=== PATIENT | male | born 1945 | race Caucasian/White ===

== ENCOUNTER → 2020-06-25 17:59 | Outpatient (CLI) | payer MEDICARE ==
[2020-06-25 18:07] LABS: BASOPHILS 0.5 % (0-2); EOSINOPHILS 3.3 % (0-7); HEMATOCRIT 29.1 % (42.0-54.0); HEMOGLOBIN 8.7 g/dL (13.5-17.5); IMMATURE GRANULOCYTES 0.2 % (0-5); LYMPHOCYTES 17.9 % (15-50); MCH 28.7 pg (26.0-34.0); MCHC 29.9 g/dL (31.0-37.0); MEAN PLATELET VOLUME 10.3 fL (7.4-10.4); MONOCYTES 9.2 % (2-11); NEUTROPHILS 68.9 % (40-80); PLATELET COUNT 180 10x3/uL (130-400); RBC 3.03 10x6/uL (4.20-6.10); RDW 17.8 % (11.5-14.5); WBC 5.8 10x3/uL (4.8-10.8)
[2020-06-25 18:22] LABS: ANION GAP 12.4 mmol/L (8-16); CALCIUM 8.6 mg/dL (8.5-10.1); CARBON DIOXIDE 23.5 mmol/L (21.0-32.0); CREATININE - SERUM 1.2 mg/dL (0.6-1.3); POTASSIUM - SERUM 3.9 mmol/L (3.5-5.1); VANCOMYCIN - TROUGH 16.7 ug/mL (10.0-20.0)
== END | disposition home or self-care (01) ==
LOC: D.LABREF 17:59
DX: B95.62 Methicillin resistant Staphylococcus aureus infection as the cause of diseases classified elsewhere (principal)

== ENCOUNTER → 2020-06-30 17:19 | Outpatient (CLI) | payer MEDICARE ==
[2020-06-30 18:09] LABS: BASOPHILS 0.4 % (0-2); EOSINOPHILS 3.7 % (0-7); HEMOGLOBIN 8.7 g/dL (13.5-17.5); IMMATURE GRANULOCYTES 0.2 % (0-5); LYMPHOCYTES 19.4 % (15-50); MCH 28.8 pg (26.0-34.0); MEAN PLATELET VOLUME 10.4 fL (7.4-10.4); MONOCYTES 10.4 % (2-11); NEUTROPHILS 65.9 % (40-80); PLATELET COUNT 146 10x3/uL (130-400); RBC 3.02 10x6/uL (4.20-6.10); RDW 18.4 % (11.5-14.5); WBC 5.4 10x3/uL (4.8-10.8)
[2020-06-30 18:52] LABS: ANION GAP 12.3 mmol/L (8-16); CALCIUM 8.6 mg/dL (8.5-10.1); CARBON DIOXIDE 22.6 mmol/L (21.0-32.0); CREATININE - SERUM 1.4 mg/dL (0.6-1.3); POTASSIUM - SERUM 3.9 mmol/L (3.5-5.1); VANCOMYCIN - TROUGH 27.6 ug/mL (10.0-20.0)
== END | disposition home or self-care (01) ==
LOC: D.LABREF 17:19
DX: T81.49XA Infection following a procedure, other surgical site, initial encounter (principal)

== ENCOUNTER → 2020-07-07 20:00 | Outpatient (CLI) | payer MEDICARE ==
[2020-07-07 22:24] LABS: BASOPHILS 0.3 % (0-2); EOSINOPHILS 3.8 % (0-7); HEMATOCRIT 32.5 % (42.0-54.0); HEMOGLOBIN 9.8 g/dL (13.5-17.5); IMMATURE GRANULOCYTES 0.2 % (0-5); LYMPHOCYTES 15.5 % (15-50); MCH 28.9 pg (26.0-34.0); MCHC 30.2 g/dL (31.0-37.0); MCV 95.9 fL (80.0-100.0); MEAN PLATELET VOLUME 10.7 fL (7.4-10.4); MONOCYTES 10.7 % (2-11); NEUTROPHILS 69.5 % (40-80); PLATELET COUNT 145 10x3/uL (130-400); RBC 3.39 10x6/uL (4.20-6.10)
[2020-07-07 22:33] LABS: ANION GAP 14.6 mmol/L (8-16); CALCIUM 8.5 mg/dL (8.5-10.1); CARBON DIOXIDE 22.4 mmol/L (21.0-32.0); CREATININE - SERUM 1.4 mg/dL (0.6-1.3); VANCOMYCIN - TROUGH 31.1 ug/mL (10.0-20.0)
== END | disposition home or self-care (01) ==
LOC: D.LABREF 20:00
DX: M86.9 Osteomyelitis, unspecified (principal)

== ENCOUNTER → 2020-07-14 16:49 | Outpatient (CLI) | payer MEDICARE ==
[2020-07-14 17:50] LABS: BASOPHILS 0.3 % (0-2); EOSINOPHILS 1.7 % (0-7); HEMATOCRIT 33.8 % (42.0-54.0); HEMOGLOBIN 10.3 g/dL (13.5-17.5); LYMPHOCYTES 14.7 % (15-50); MCHC 30.5 g/dL (31.0-37.0); MCV 95.2 fL (80.0-100.0); MEAN PLATELET VOLUME 10.2 fL (7.4-10.4); MONOCYTES 8.2 % (2-11); NEUTROPHILS 75.1 % (40-80); RBC 3.55 10x6/uL (4.20-6.10); RDW 19.6 % (11.5-14.5); WBC 5.9 10x3/uL (4.8-10.8)
[2020-07-14 17:51] LABS: PLATELET COUNT 112 10x3/uL (130-400)
[2020-07-14 18:04] LABS: CALCIUM 8.6 mg/dL (8.5-10.1); CARBON DIOXIDE 25.4 mmol/L (21.0-32.0); CREATININE - SERUM 1.2 mg/dL (0.6-1.3); POTASSIUM - SERUM 3.4 mmol/L (3.5-5.1); VANCOMYCIN - TROUGH 18.5 ug/mL (10.0-20.0)
== END | disposition home or self-care (01) ==
LOC: D.LABREF 16:49
PROVIDERS: ATTEND Surgery Vascular Surgery
DX: R79.89 Other specified abnormal findings of blood chemistry (principal)

== ENCOUNTER → 2020-11-27 16:36 | Outpatient (CLI) | payer MEDICARE ==
[2020-11-27 17:06] LABS: BASOPHILS 0.1 % (0-2); EOSINOPHILS 0.1 % (0-7); HEMATOCRIT 27.7 % (42.0-54.0); HEMOGLOBIN 8.3 g/dL (13.5-17.5); IMMATURE GRANULOCYTES 0.4 % (0-5); LYMPHOCYTES 5.7 % (15-50); MCH 27.5 pg (26.0-34.0); MCV 91.7 fL (80.0-100.0); MEAN PLATELET VOLUME 8.6 fL (7.4-10.4); MONOCYTES 6.5 % (2-11); NEUTROPHIL ABS# 15.19 10x3/uL (1.78-5.38); NEUTROPHILS 87.2 % (40-80); RBC 3.02 10x6/uL (4.20-6.10); RDW 16.8 % (11.5-14.5); WBC 17.4 10x3/uL (4.8-10.8)
[2020-11-27 17:15] LABS: PLATELET COUNT 239 10x3/uL (130-400)
[2020-11-27 17:19] LABS: BILIRUBIN NEGATIVE (NEGATIVE); KETONE NEGATIVE (NEGATIVE); NITRITE NEGATIVE (NEGATIVE); UROBILINOGEN NORMAL mg/dL (< 2)
[2020-11-27 17:21] LABS: BACTERIA MANY HPF (NONE SEEN); SQUAMOUS EPITHELIAL NONE SEEN HPF (0-4)
[2020-11-27 17:30] LABS: ALBUMIN 1.8 g/dL (3.4-5.0); ALT (SGPT) 95 U/L (10-68); BILIRUBIN - TOTAL 0.31 mg/dL (0.2-1.3); CALCIUM 9.5 mg/dL (8.5-10.1); CARBON DIOXIDE 20.2 mmol/L (21.0-32.0); CREATININE - SERUM 2.1 mg/dL (0.6-1.3); GLUCOSE 223 mg/dL (74-106); PROTEIN - SERUM 7.2 g/dL (6.4-8.2); UREA NITROGEN 71 mg/dL (7-18); eGFR NON AFRICAN AMERICAN 33 mL/min (90-120)
[2020-11-27 17:40] LABS: CALC OSMOLALITY 293 mosm/kg (275-300); CHLORIDE - SERUM 102 mmol/L (98-107); SODIUM 133 mmol/L (136-145)
[2020-11-27 17:42] LABS: POTASSIUM - SERUM 8.3 mmol/L (3.5-5.1)
[2020-11-27 17:43] LABS: ALKALINE PHOSPHATASE < 10 U/L (30-120)
== END | disposition home or self-care (01) ==
LOC: D.LABREF 16:36
PROVIDERS: ATTEND Legal Medicine
DX: N17.9 Acute kidney failure, unspecified (principal)